=== PATIENT | male | born 1960 | race Two or more races ===

== ENCOUNTER 2020-12-01 10:49 | Emergency (ER) | payer BC, OTHER ==
[~2020-12-01] VITALS: Ht 185.4 cm; Wt 90.7 kg
[2020-12-01] MEDS ORDERED: TETRACAINE HCL 0.5% OPTH(EYE) SOLN 4ML EACHEYE ONE (11:15)
[2020-12-01] MEDS ORDERED: FLUORESCEIN SOD OPTH TEST STRIP OP ONE (11:15)
[2020-12-01 11:48] VITALS: BP 138/95
== END 2020-12-01 12:05 | disposition home or self-care (01) ==
LOC: ER 10:49
DX: T15.01XA Foreign body in cornea, right eye, initial encounter (principal); W22.8XXA Striking against or struck by other objects, initial encounter; Y93.89 Activity, other specified; Y92.89 Other specified places as the place of occurrence of the external cause; Y99.8 Other external cause status
CPT/HCPCS: 65222

== ENCOUNTER 2024-01-11 10:27 | Emergency (ER) | payer BC, OTHER ==
[~2024-01-11] VITALS: Ht 185.4 cm; Wt 86.8 kg
[2024-01-11 11:14] VITALS: BP 130/90; PULSE 71; RESP 18; TEMP 98; O2SAT 97
== END 2024-01-11 12:45 | disposition home or self-care (01) ==
LOC: ER 10:27
DX: S86.912A Strain of unspecified muscle(s) and tendon(s) at lower leg level, left leg, initial encounter (principal); S70.12XA Contusion of left thigh, initial encounter; X58.XXXA Exposure to other specified factors, initial encounter; Y93.89 Activity, other specified; Y92.89 Other specified places as the place of occurrence of the external cause; Y99.8 Other external cause status
CPT/HCPCS: 93971